=== PATIENT | female | born 2000 | race Caucasian/White ===

== ENCOUNTER 2020-07-13 09:20 | Inpatient (IN) | payer BC, SELFPAY ==
[2020-07-13] VITALS (36 sets, daily range): BP systolic 102–123; BP diastolic 53–75; PULSE 55–88; RESP 16; TEMP 36.2–37.3; O2SAT 90–100; BMI 33.3
[2020-07-13 09:18] LABS: ROM Internal Control Test YES-OK TO RESULT pt. (Internal QC)
[2020-07-13 09:20] LABS: ROM Patient Test POSITIVE (Negative)
[2020-07-13] MEDS: Lactated Ringers 1,000 ML 50 ML IV (09:45)
[2020-07-13 10:00] LABS: Absolute Lymphocyte Count 2.23 X10^3/uL (0.83-4.51); Absolute Neutrophil Count 5.1 X10^3/uL (2.0-7.7); Basophil# 0.03 X10^3/uL; Basophil% 0.4 % (0-1); Eosinophil# 0.07 X10^3/uL; Eosinophils% 0.8 % (0-5); Hematocrit 34.5 % (37-47); Hemoglobin 11.4 g/dL (12.0-15.0); Lymphocyte # 2.23 X10^3/ul (4.0); Lymphocyte % 26.5 % (19-41); Mean Corpuscular Hgb 29.2 pg (27.0-32.0); Mean Corpuscular Volume 88.2 fL (81-99); Mean Platelet Vol. 9.7 fl (6.2-12.0); Monocyte# 0.91 X10^3/uL; Monocyte% 10.8 % (0-10); NRBC Flagged by Analyzer 0 % (0-5); Neutrophil # 5.14 X10^3/uL (2.7-7.7); Neutrophil % 61.1 % (47-70); Platelet Count 402 K/mm3 (150-450); RBC Distribution Width CV 13.2 % (11.6-14.6); RBC Distribution Width SD 42.2 fl (35.1-43.9); Red Blood Count 3.91 M/mm3 (4.2-5.4); White Blood Count 8.4 K/mm3 (4.4-11.0)
[2020-07-13] MEDS: Lactated Ringers 500 ML 999 ML IV ×2 (10:02→14:12)
[2020-07-13] MEDS: fentaNYL-bupivacaine (epidural) 100 ML BAG EPIDURAL (11:16)
[2020-07-13 13:15] LABS: Amphetamine Urine VISTA NEGATIVE (<1000 ng/mL); Barbiturate Urine VISTA NEGATIVE (< 200 ng/mL); Benzodiazepine Urine VISTA NEGATIVE (< 200 ng/mL); Cocaine Urine VISTA NEGATIVE (< 300 ng/mL); Ecstacy Urine VISTA NEGATIVE (< 500 ng/mL); Methadone Urine VISTA NEGATIVE (< 300 ng/mL); PCP Urine VISTA NEGATIVE (< 25 ng/mL); THC Urine VISTA NEGATIVE (< 50 ng/mL); Vista UDS pH Range 5
[2020-07-13] MEDS: Oxytocin 30 units/NS 500 ml 30 UNITS/500 ML IV.SOLN 334 UNITS IV (14:47)
[2020-07-13] MEDS: Methylergonovine 0.2 MG/ML Ampul IM (14:54)
--- NOTE | 2020-07-13 15:14 | PCM.HP.OB ---
History Date of Admission: 07/13/20 Final MINA: 07/16/20 Gestational age: 39 Weeks and 4 Days History of this : This is a 19 year-old, G [], P [], at 39 weeks gestational age. Surgical History: Surgical History (Last Updated 07/13/20 @ 15:[address] Dori Jeronimo MD) History of cholecystectomy Z90.49 Hx of appendectomy Z90.49 Allergies No Known Allergies Allergy (Verified 07/13/20 09:32) Home Medications: Home Medications Ferrous Sulfate 325 mg PO DAILY 07/13/20 Prenatabs FA 1 tab PO DAILY 07/13/20 Smoking Status: Former smoker Substance Use Type: Marijuana, Sleep Aides Number of Fetus(es): 1 History Past Pregnancies: Past Pregnancies Delivery Date Name GA/ Weeks Outcome Route Wt Infant Sex Labor Length Anesthesia Delivery Location Provider FOB Labs: See [facility] Physical Exam Vitals: Vital Signs Temp Pulse BP Pulse Ox 98.2 F 73 113/55 L 100 07/13/20 14:23 07/13/20 15:13 07/13/20 15:13 07/13/20 13:19 General: Alert, Oriented x3 Abdomen: Soft, Non Tender, Non-Distended, Gravid Neurological: Cranial nerves II-XII grossly intact Assessment/Plan This is a 19 year-old, G2, P0010, at 39&4 weeks gestational age. Admit to L&D Expectant management GBS positive - pcn ordered EFW less than 4500g, patient with adequate pelvis
--- NOTE | 2020-07-13 15:19 | PCM.OPRPT ---
Vaginal Delivery Maternal Presentation: Active Labor Amniotic Membrane Rupture Type: Spontaneous at home Amniotic Fluid Description: Clear Final MINA: 07/16/20 Gestational age: 39 Weeks and 4 Days Date of Procedure: 07/13/20 Pre-Operative Diagnosis: Labor Post-Operative Diagnosis: Labor Surgery/ Procedure Performed: Spontaneous Vaginal Delivery Type of Anesthesia: Epidural Description of Procedure: Patient prepped & draped in stirrups when C/C/+2. She pushed to deliver the head in the direct OA presentation. Shoulders & body easily followed. placed on maternal abdomen where 3VC clamped & cut in delayed fashion. Placenta delivered with gentle traction. Good uterine tone obtained. Presentation: Vertex Placental Delivery Description: Expressed Placenta Disposition: [facility] Cord Vessel Description: 3 Vessels Cord Entanglement: None Estimated Blood Loss: 600ml A gender: Male - Pallavi (1 minute): 9 (5 minute): 9 Episiotomy Description: None Laceration: 1st degree - perineal - repaired with 3-0 vicryl Medications given after delivery: IV Pitocin, IM Methergin Complications: None
[2020-07-13] MEDS: Acetaminophen 500 MG Tablet 1000 MG PO (20:31)
[2020-07-14] MEDS: Ibuprofen 600 MG Tablet PO (02:59)
[2020-07-14 04:00] VITALS: BP 96/47; PULSE 63; RESP 16; TEMP 36.6
[2020-07-14 04:52] VITALS: BP 96/47; PULSE 63
[2020-07-14 08:00] VITALS: BP 103/58; PULSE 72; RESP 16; TEMP 36.3
[2020-07-14 08:14] VITALS: BP 103/58; PULSE 72
--- NOTE | 2020-07-14 10:00 | CASEMGMT ---
Social Work Assessment Labor and Delivery Unit Date of Referral: 07/13/2020 Time of Referral: 19:14 Referred By: Dori Jeronimo Date/Time of Intervention: 07/14/20, 9:30am Reason for Referral: +THC in , old self-inflicted scars on bilateral thighs History obtained from: FOB and MOB initially, then MOB Household composition: FOB Gael Gonzalez, MOB, MOB's brother, and now baby Pallavi. MOB and FOB have been together for 2 years. Patient's parent/guardian status: MOB is guardian of baby Medical history: MOB: history of cholecystectomy, appendectomy. MOB had care throughout . Baby Pallavi: Born 07/13/2022, 3825 grams. Apgars 9 and 9 at one and five minutes. 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 She is on maternity leave and will return in 12 weeks. No financial concerns. supplies: They report to have all supplies including crib, pack n play, bassinet, diapers, bottles, access to formula if needed(plans to breastfeed), car seat, clothing. Childcare/Caregivers: MOB, FOB, MOB's mother and grandmother will help when MOB returns to work. MOB will watch baby for the first month, then MOB's grandmother will watch baby after that. Transportation: They have access to transportation, no concerns Programs/Agencies involved: signed up for [facility], no other agencies involved Children's Services/Legal Issues: MOB and FOB deny any history of involvement with either Behavioral Health Issues: Mental Health History: MOB and FOB both deny any mental health history. SW did ask MOB about self injurious behaviors. She states this was when she was 12 and hanging out with the wrong crowd. She states is not something she has done since and does not see it as an ongoing issue or concern. Substance Abuse History: FOB denies any substance abuse history. MOB: confirms smoked marijuana for a while, admits to smoking for a couple years. As per chart, MOB had a positive tox screen on January 11 for THC. It does not appear MOB has had any tox screens since(many visits were virtual due to COVID), until this hospitalization. MOB and baby both negative, meconium is pending. As per chart, when pt had next visit on 02/08, had quit smoking marijuana. SW asked MOB about this, and she confirms she did quit and has not smoked since. She has no plans to start smoking marijuana again. MOB states quit on her own and declined any referrals for support. MOB denied any other history of substance abuse. Safety: SW asked MOB when FOB out of room about any safety concerns in regard to FOB. MOB denies any safety concerns, and domestic violence. Family/Social Stressors: MOB and FOB deny any stressors. Support Systems: MOB's sister, mother, grandmother, FOB's grandmother. Depression and Anxiety/Shaken Baby/Safe Sleeping: SW gave information and reviewed information on all of these topics. SW also gave MOB list of mental health agencies and did mention [facility] has a 24 hour hotline if needed, circled this number on the list. SW also explained if she did feel was experiencing mental health issues can also go on insurance website to find providers closer to home, MOB states understanding. SW also gave MOB information on [facility], she declined referral at this time. Assessment: MOB and FOB appropriate in conversation w/SW, answered questions, good eye contact. MOB not overly elaborate on marijuana use or history of self injurious behaviors, but did answer questions asked. SW observed both MOB and FOB interact w/baby and both appropriate. Based on use of marijuana early in , Children[facility] Services does need to be called. ALEXSANDER explained to MOB that SW will be calling and will let her know if they need to come see her once they are home. ALEXSANDER then called [facility] in [place] and gave report to Yanni. ALEXSANDER explained the reason for [facility] and marijuana use early in . Yanni states the information will be given to the screener on Thursday and if they feel they need to contact MOB will do so on Thursday. SW let MOB and FOB know [facility] were called and if they feel they need to speak with MOB will call her on Thursday. MOB and FOB state understanding. No further needs anticipated, MOB and FOB home w/baby today. SW will watch for meconium tox screen and if positive [facility] will be called again. Otherwise no further needs. CONNIE Pierce
[2020-07-14 11:36] VITALS: BP 121/56; PULSE 67
[2020-07-14 11:45] VITALS: BP 121/56; PULSE 67; RESP 16; TEMP 36.7
--- NOTE | 2020-07-14 12:05 | PCM.PN.OB ---
Subjective: No complaints - Physical Exam Vitals/I&O's: Vital Signs Temp Pulse Resp BP Pulse Ox 97.4 F L 67 16 121/56 H 97 07/14/20 08:00 07/14/20 11:36 07/14/20 08:00 07/14/20 11:36 07/13/20 17:14 Oxygen Delivery Method Room Air Weight: 200 lb 8 oz Body Mass Index (BMI) 33.3 Intake and Output for Last 24 Hours 07/12/20 07/13/20 07/14/20 23:59 23:59 23:59 Intake Total 3026.66 / 3026.66 Output Total 1300 / 1300 Balance 1726.66 / 1726.66 General: Alert, Oriented x3 Abdomen: Soft, Non-Distended - ff mid & below umb Extremities: No Calf Tenderness Laboratory Results 07/13/20 12:04: Urine Opiates Screen NEGATIVE, Urine Methadone Screen NEGATIVE, Ur Barbiturates Screen NEGATIVE, Ur Phencyclidine Scrn NEGATIVE, Ur Amphetamines Screen NEGATIVE, U Methamphetamin-MDMA NEGATIVE, U Benzodiazepines Scrn NEGATIVE, Urine Cocaine Screen NEGATIVE, U Cannabinoids Screen NEGATIVE, Ur Drug Screen Comment Current Medications Acetaminophen (Acetaminophen 500 Mg Tablet) 1,000 mg PO Q8H PRN PRN PRN Reason: Pain Score 1-3 Last Admin: 07/13/20 20:31 Dose: 1,000 mg Documented by: Bisacodyl (Bisacodyl 10 Mg Suppository) 10 mg RECTAL UD PRN PRN Reason: If no BM Dibucaine (Dibucaine 30 Gm Tube) 1 applic TOPICAL TID PRN PRN; Protocol PRN Reason: Discomfort Hydrocortisone (Hydrocortisone 2.5% Crm) 1 applic TOPICAL TID PRN PRN; Protocol PRN Reason: Discomfort Ibuprofen (Ibuprofen 600 Mg Tablet) 600 mg PO Q6H PRN PRN PRN Reason: Pain Score 1-3 Last Admin: 07/14/20 02:59 Dose: 600 mg Documented by: Methylergonovine Maleate (Methylergonovine 0.2 Mg/Ml Ampul) 0.2 mg IM X1 PRN PRN Reason: Excess bleeding/uterine atony Last Admin: 07/13/20 14:54 Dose: 0.2 mg Documented by: Ondansetron HCl (Ondansetron 4 Mg/2 Ml Vial) 4 mg IV Q4H PRN PRN PRN Reason: Nausea Oxycodone HCl (Oxycodone 5 Mg Tablet) 5 - 10 mg PO Q4H PRN PRN PRN Reason: Pain Score 4-10 Senna/Docusate Sodium (Senna/Docusate Sodium 1 Tablet) 1 - 2 tablet PO DAILY PRN PRN PRN Reason: Constipation Simethicone (Simethicone 80 Mg Tablet) 80 mg PO PCHS PRN PRN Reason: Indigestion/Stomach pain Sodium Chloride (0.9% Saline Lock 10 Ml Syringe) 5 - 15 ml IV UD PRN PRN Reason: SALINE FLUSH Medical Necessity - Tobacco Use Smoking Status: Former smoker Assessment/Plan PPD#1 D/c home later today per patient request
--- NOTE | 2020-07-14 12:06 | DCINST_ITS ---
Discharge Diet: No Restrictions Discharge Activity: May Drive, May Shower May resume sexual activity in: 6 weeks Additional Instructions: If you experience any of the following, contact your healthcare provider. * Bleeding that soaks a pad every hour for 2 hours * Fever 100.4 or higher * Unrelieved incision or abdominal pain * Swelling, redness, discharge or bleeding from your incision or episiotomy site * Your incision begins to separate * Problems urinating (including inability to urinate or burning while urinating). * Visual changes * Severe headache * Flu-like symptoms * Pain or redness in one of both of your breasts * Pain, warmth, tenderness or swelling in your legs, especially the calf area * Frequent nausea and vomiting * Symptoms of depression or anxiety If you experience any of the following, call 911 or go to the nearest Emergency Room. * Chest pain * Problems breathing * Seizure activity * Partial or complete paralysis of a body part, slurred speech, weakness or drooping of the face, or a sudden inability to walk or hold your balance Allergies/Adverse Reactions: Allergies No Known Allergies Allergy (Verified 07/13/20 09:32) Medications to take at Discharge Prenatabs FA 1 tab PO DAILY 07/13/20 Acetaminophen [Tylenol] 1,000 mg PO Q8H PRN PRN tablet 07/14/20 Ibuprofen [Motrin] 600 mg PO Q6H PRN PRN tablet 07/14/20 Primary Care Physician: Yang Alas MD [Primary Care Provider] - Test Results: Test results from this visit will be discussed in further detail at your follow- up appointment, if applicable.
--- NOTE | 2020-07-14 12:06 | PCM.DCVAG ---
Discharge Diet: No Restrictions Discharge Activity: May Drive, May Shower May resume sexual activity in: 6 weeks Additional Instructions: If you experience any of the following, contact your healthcare provider. Bleeding that soaks a pad every hour for 2 hours Fever 100.4 or higher Unrelieved incision or abdominal pain Swelling, redness, discharge or bleeding from your incision or episiotomy site Your incision begins to separate Problems urinating (including inability to urinate or burning while urinating). Visual changes Severe headache Flu-like symptoms Pain or redness in one of both of your breasts Pain, warmth, tenderness or swelling in your legs, especially the calf area Frequent nausea and vomiting Symptoms of depression or anxiety If you experience any of the following, call 911 or go to the nearest Emergency Room. Chest pain Problems breathing Seizure activity Partial or complete paralysis of a body part, slurred speech, weakness or drooping of the face, or a sudden inability to walk or hold your balance Allergies/Adverse Reactions: Allergies No Known Allergies Allergy (Verified 07/13/20 09:32) Medications to take at Discharge Prenatabs FA 1 tab PO DAILY 07/13/20 Acetaminophen [Tylenol] 1,000 mg PO Q8H PRN PRN tablet 07/14/20 Ibuprofen [Motrin] 600 mg PO Q6H PRN PRN tablet 07/14/20 Primary Care Physician: Yang Alas MD [Primary Care Provider] - Test Results: Test results from this visit will be discussed in further detail at your follow-up appointment, if applicable.
== END 2020-07-14 16:05 | disposition home or self-care (01) | DRG 807 ==
LOC: WPOUT 09:21 → WP 09:21
PROVIDERS: Admitting Provider Obstetrics & Gynecology; PCP Family Medicine; Referring Provider Obstetrics & Gynecology; Visit Provider Obstetrics & Gynecology
DX: O99.824 Streptococcus B carrier state complicating childbirth (principal); O70.0 First degree perineal laceration during delivery; Z87.891 Personal history of nicotine dependence; Z3A.39 39 weeks gestation of pregnancy; Z37.0 Single live birth
CPT/HCPCS: 59025; 59050; 80307; 84112; 85025; 86850; 86900; 86901; 99218; J7120; G0378